=== PATIENT | female | born 1950 | race Caucasian/White ===

== ENCOUNTER 2019-05-23 12:35 | Inpatient (IN) ==
[2019-05-23 12:35] LABS: Basophils # 0.1 K/mm3 (0-0.2); Basophils % 0.3 % (0.1-2.0); Eosinophils # 0.1 K/mm3 (0.0-0.4); Eosinophils % 0.4 % (0.1-12.0); Hematocrit 41.2 % (37.0-47.0); Hemoglobin 12.8 g/dL (12.2-16.2); Lymphocytes # 3.9 K/mm3 (0.7-4.5); Lymphocytes % 16.9 % (10-50); Mean Corpuscular Volume 88.8 fl (81-99); Mean Platelet Volume 7.9 fl (7.4-10.4); Monocytes # 1.3 K/mm3 (0.1-1.0); Monocytes % 5.7 % (1.7-9.3); Neutrophils # 17.6 K/mm3 (1.8-7.8); Neutrophils % 76.6 % (37.0-80.0); Platelet Count 202 K/mm3 (142-424); Red Blood Count 4.63 M/mm3 (4.20-5.40); Red Cell Distribution Width 13.5 % (11.5-17.5); White Blood Count 22.9 K/mm3 (4.8-10.8)
[2019-05-23 12:43] LABS: Albumin Level 2.8 gm/dL (3.4-5.0); Albumin/Globulin Ratio 0.8 (1.1-1.8); Anion Gap 8.5 mEq/L (5-15); Bilirubin,Total 1.6 mg/dL (0.2-1.0); Calcium 9.2 mg/dL (8.5-10.1); Globulin 3.6 gm/dl (1.3-3.2); Total Protein,Serum 6.4 gm/dL (6.4-8.2)
--- NOTE | 2019-05-23 12:46 | Emergency Department Note ---
ED Disposition Clinical Impression: Abdominal pain, Colitis Disposition: Admitted as Observation Condition on Discharge: Fair Referrals: Provider,Referral, [Primary Care Provider] - Time of Disposition: 14:23 - Critical Care Critical Care Time: No Attestation: On , the high probability of a clinically significant, sudden or life threatening deterioration of the following system(s) required my full and direct attention, intervention and personal management. The time I documented below is in addition to time spent performing reported procedures but includes the following listed in this critical care notation. Medical Decision Making - Medical Records Medical records reviewed: Yes: I reviewed the patient's medical records. - Saravanan Inquiry Pt receiving controlled substance: No Saravanan was queried for this patient: No Vital Signs: 05/23/19 12:13 05/23/19 13:52 Temperature 98.0 F Temperature Source Oral Pulse Rate 95 H Pulse Rate [Right Brachial] 103 H Respiratory Rate 18 Blood Pressure [Right Arm] 140/59 L Blood Pressure Mean [Right Arm] 86 Blood Pressure Source [Right Arm] Automatic Cuff Blood Pressure Position [Right Arm] Sitting 02 Sat by Pulse Oximetry 93 L Oxygen Delivery Method Nasal Cannula Oxygen Flow Rate (LPM) 3 - Lab Data Lab results reviewed: Yes: I reviewed the patient's lab results. Lab Results 05/23/19 12:24: WBC 22.9 H*, RBC 4.63, Hgb 12.8, Hct 41.2, MCV 88.8, MCH 27.6, MCHC 31.0 L, RDW 13.5, Plt Count 202, MPV 7.9, Neut % (Auto) 76.6, Lymph % (Auto) 16.9, [place] % (Auto) 5.7, Eos % (Auto) 0.4, Baso % (Auto) 0.3, Neut # (Auto) 17.6 H, Lymph # (Auto) 3.9, [place] # (Auto) 1.3 H, Eos # (Auto) 0.1, Baso # (Auto) 0.1, Total Counted 100, Neutrophils % (Manual) 64, Band Neutrophils % 12. 0 H, Lymphocytes % (Manual) 7 L, Atypical Lymphs % 15.0, Monocytes % (Manual) 2, Platelet Estimate Normal, RBC Morphology Normal 05/23/19 12:24: Sodium 136, Potassium 3.5, Chloride 97 L, Carbon Dioxide 34 H, Anion Gap 8.5, BUN 23 H, Creatinine 0.80, Estimated Creat Clear 67, Estimated GFR 71, Est GFR ( Amer) 86, Glucose 101, Calcium 9.2, Total Bilirubin 1.6 H, AST 27, ALT 29, Alkaline Phosphatase 89, Total Protein 6.4, Albumin 2.8 L, Globulin 3.6 H, Albumin/Globulin Ratio 0.8 L, Amylase 26, Lipase 70 L 05/23/19 13:30: Lactate 1.0 Result diagrams: 05/23/19 12:24 05/23/19 12:24 Orders (Tests/Meds): ED MEDICATIONS Generic Name Dose Route Start Last Admin Trade Name Freq PRN Reason Stop Dose Admin Acetaminophen 650 mg 05/23/19 12:42 05/23/19 12:57 Acetaminophen 325mg Tab PO 06/22/19 12:41 650 mg Q4HP PRN Administration Fever > 100.4 Levofloxacin/Dextrose 750 mg in 150 mls @ 100 mls/hr 05/23/19 14:00 05/23/19 14:02 Levofloxacin 750mg/150ml Premix IV 06/06/19 13:59 100 mls/hr Q24H RICK Administration Protocol Discontinued Medications Generic Name Dose Route Start Last Admin Trade Name Freq PRN Reason Stop Dose Admin Albuterol/Ipratropium 3 ml 05/23/19 13:51 05/23/19 13:51 Duoneb 3ml Neb IH 05/23/19 13:52 3 ml ONCE ONE Administration Sodium Chloride 1,000 mls @ 999 mls/hr 05/23/19 12:45 05/23/19 12:57 Sod Chlor 0.9% 1000ml Bag IV 05/23/19 13:45 999 mls/hr .Q1H1M RICK Administration Ondansetron HCl 4 mg 05/23/19 12:56 05/23/19 12:57 Zofran 4mg/2ml Vial IV 05/23/19 12:57 4 mg ONCE ONE Administration ORDERS Category Date Time Status Urinalysis (cathed specimen) Stat Lab 05/23/19 12:19 Ordered Blood Culture Stat Micro 05/23/19 13:30 Received - Physician Consults Physician Consulted: chioma Time: 14:25 Reason -: Admission, Pt condition Comment/Response: admit, hydration, initiate antibiotics ...leukocytosis and stranding on CT though patient is steroid dependent General Adult HPI - General Chief complaint: Abdominal Pain Stated complaint: fever Time Seen by Provider: 05/23/19 12:43 Mode of Arrival: EMS Source of Information: Patient Limitations: No Limitations Description of Symptoms (Recalled from ER Triage Doc. by RN): fever, abd discomfort, n/v - History of Present Illness HPI narrative: vomiting and fever. Hospice for endstage copd. Lives with her son. Has marked lower abdominal pain on arrival, guarding in lower quads - Related Data Allergies Allergy/AdvReac Type Severity Reaction Status Date / Time benzocaine [From Cetacaine] Allergy Unknown Unknown Verified 05/23/19 14:16 allergy reaction blueberry Allergy Unknown Unknown Verified 05/23/19 14:16 allergy reaction butamben [From Cetacaine] Allergy Unknown Unknown Verified 05/23/19 14:16 allergy reaction Iodinated Contrast Media - Allergy Unknown Unknown Verified 05/23/19 14:16 Oral and allergy reaction Sulfa (Sulfonamide Allergy Unknown Unknown Verified 05/23/19 14:16 Antibiotics) allergy [SULFA (SULFONAMIDE reaction ANTIBIOTICS)] tetracaine [From Cetacaine] Allergy Unknown Unknown Verified 05/23/19 14:16 allergy reaction UNKNOWN PAIN MED Allergy Unknown Unknown Uncoded 05/23/19 14:16 allergy reaction [facility] History - Hepatitis A Screen Drug use history?: No High risk sexual behaviors?: No History of sexually transmitted infection?: No Currently employed?: No Childcare worker?: No Do you have indoor plumbing?: Yes Do you have electricity?: Yes Attestation statement:: This patient has been screened for Hepatitis A risk factors. I have reviewed the patient's past medical history: Yes ROS Obtained: Yes All systems reviewed & no additional complaints - Constitutional Constitutional: Reports chills, Reports fever(s), Reports lethargy, Reports weakness - Eyes Eyes: Reports system reviewed and no additional complaints, except as docu - ENT Ears, Nose, Mouth, and Throat: Reports system reviewed and no additional complaints, except as docu - Respiratory Respiratory: Yes system reviewed and no additional complaints, except as docu, No chest congestion, No cough, Yes dyspnea, No coughing up blood - Gastrointestinal Gastrointestingal: Reports: abdominal pain, vomiting. Denies: vomiting blood, bright red blood in stools - Genitourinary Female Genitourinary: Denies dysuria, Denies flank pain - Neurologic Neurologic: Reports system reviewed and no additional complaints, except as docu, Denies burning sensations, Denies focal weakness, Denies headache(s), Denies seizure-like activity, Denies syncope, Reports vertigo, Reports weakness - Hematologic/Lymphatic Henatologic/Lymphatic: Denies easy bleeding, Denies easy bruising Physical Exam - General General appearance: alert, in distress, other (respiratory) - Head Head exam: atraumatic - Eye Eye exam: Present: normal appearance, PERRL, EOMI - ENT ENT exam: Present: normal oropharynx, mucous membranes dry - Neck Neck exam: Absent: tenderness, meningismus - Respiratory Respiratory exam: Present: respiratory distress, other (rhonchi scattered). Absent: normal lung sounds bilaterally - Cardiovascular Cardiovascular exam: Present: regular rate - Abdominal Exam Abdominal exam: Present: soft, tenderness, guarding. Absent: organomegaly, mass, hernia Abdominal tenderness: Present: RLQ, LLQ, suprapubic - Extremities Exam Extremities exam: Present: normal inspection, full ROM, normal capillary refill. Absent: tenderness, joint swelling, calf tenderness - Neurological Exam Neurological exam: Present: alert, CN II-XII intact, other (globally weak, no focal weakness) - Psychiatric Psychiatric exam: Present: normal affect, normal mood, other (depressed). Absent: anxious - Skin Skin exam: Present: warm, dry, intact, normal color
[2019-05-23 12:48] LABS: Lymphocytes % 7 % (10-50); Monocytes % 2 % (2-9); Neutrophils % 64 % (42-76); RBC Morphology Normal; Total Cells Counted 100
[2019-05-23 15:17] LABS: ABG Base Excess 1.8 mmol/L (-2.4-2.3); ABG HCO3 25.9 mmhg (22.0-26.0); ABG Oxygen Saturation 98 % (90-100); ABG PCO2 38.9 mmhg (35.0-45.0); ABG PH 7.44 mmol/L (7.35-7.45); ABG TCO2 27.1 mmhg (23-27)
[2019-05-23 15:18] LABS: Allen's Test ACCEPTABLE; Oxygen 4 LPM %
--- NOTE | 2019-05-23 16:25 | History & Physical Report ---
*Admission Date: 05/23/19 *Chief complaint: colitis *History of present illness: 68 year old female presents to ER for abdominal pain, fever, and N/V. Diagnosed with colitis via CT scan and admitted for further observation. WBC are also elevated, patient is on chronic steroids. Onset of symptoms Thursday evening. Diminished appetite but drinking OK. Last BM yesterday, last urination yesterday. She reports living by herself in [facility] but receiving hospice care (Dr Johnson) the past 3-4 weeks for end-stage COPD. Previous provider was Dr Gilliam in [place]. Usually wears 3L NC at home, requiring 4L currently. She uses a walker at home, does not drive. Quit smoking about five years ago. Cough and breathing is per her usual. She reports feeling comfortable at this time. Overall poor historian and tells me she is very tired. No family to accompany at this time. [facility] History Medical History: Reports:: Chronic Obstructive Pulmonary Disease (COPD) *Have you ever received a pneumonia vaccine?: No *Have you received a flu vaccine this season?: No Other Surgeries: Yes: Other (hemorrhoidectomy) - *Social History Smoking Status: Former smoker Tobacco Type: cigarettes *Occupational Status:: disabled *Travel in the last 8 weeks: None Family Hx:: Unable to obtain Review of Systems - Constitutional Reports anorexia, Reports chills, Reports fever(s), Reports lack of energy, Reports malaise, Reports weakness - *Cardiovascular Denies chest pain, Denies irregular heart rhythm, Denies lightheadedness - *Respiratory Reports cough, Reports shortness of breath - *Gastrointestinal Reports abdominal pain, Reports nausea, Reports vomiting - *Musculoskeletal Reports decreased muscle mass, Reports muscle weakness - *Neurologic Reports dizziness, Reports weakness, Denies burning sensations, Denies localized weakness, Denies headache(s), Denies seizure-like activity, Denies fainting Meds Home Medications Medication Instructions Recorded Confirmed Type Ipratropium/Albuterol Sulfate 1 neb IH QID 05/23/19 05/23/19 History [Iprat-Albut 0.5-3(2.5) mg/3 ml] Metoprolol Tartrate [Lopressor 25 mg PO DAILY 05/23/19 05/23/19 History 25mg tablet] Mirtazapine 7.5 mg PO DAILY 05/23/19 05/23/19 History Morphine Sulfate [MSIR 15mg tablet] 15 mg PO TIDP PRN 05/23/19 05/23/19 History clonazePAM [Clonazepam] 1 mg PO TID 05/23/19 05/23/19 History Allergies Allergy/AdvReac Type Severity Reaction Status Date / Time benzocaine [From Cetacaine] Allergy Unknown Unknown Verified 05/23/19 14:16 allergy reaction blueberry Allergy Unknown Unknown Verified 05/23/19 14:16 allergy reaction butamben [From Cetacaine] Allergy Unknown Unknown Verified 05/23/19 14:16 allergy reaction Iodinated Contrast Media - Allergy Unknown Unknown Verified 05/23/19 14:16 Oral and allergy reaction Sulfa (Sulfonamide Allergy Unknown Unknown Verified 05/23/19 14:16 Antibiotics) allergy [SULFA (SULFONAMIDE reaction ANTIBIOTICS)] tetracaine [From Cetacaine] Allergy Unknown Unknown Verified 05/23/19 14:16 allergy reaction UNKNOWN PAIN MED Allergy Unknown Unknown Uncoded 05/23/19 14:16 allergy reaction Exam Vital signs and Labs for Last 24 Hours: Temp Pulse Resp BP Pulse Ox 98.0 F 87 18 121/72 93 L 05/23/19 15:32 05/23/19 15:32 05/23/19 15:32 05/23/19 15:32 05/23/19 12:13 Laboratory Results - last 24 hr 05/23/19 12:24: WBC 22.9 H*, RBC 4.63, Hgb 12.8, Hct 41.2, MCV 88.8, MCH 27.6, MCHC 31.0 L, RDW 13.5, Plt Count 202, MPV 7.9, Neut % (Auto) 76.6, Lymph % (Auto) 16.9, [place] % (Auto) 5.7, Eos % (Auto) 0.4, Baso % (Auto) 0.3, Neut # (Auto) 17.6 H, Lymph # (Auto) 3.9, [place] # (Auto) 1.3 H, Eos # (Auto) 0.1, Baso # (Auto) 0.1, Total Counted 100, Neutrophils % (Manual) 64, Band Neutrophils % 12.0 H, Lymphocytes % (Manual) 7 L, Atypical Lymphs % 15.0, Monocytes % (Manual) 2, Platelet Estimate Normal, RBC Morphology Normal 05/23/19 12:24: Sodium 136, Potassium 3.5, Chloride 97 L, Carbon Dioxide 34 H, Anion Gap 8.5, BUN 23 H, Creatinine 0.80, Estimated Creat Clear 67, Estimated GFR 71, Est GFR ( Amer) 86, Glucose 101, Calcium 9.2, Total Bilirubin 1.6 H, AST 27, ALT 29, Alkaline Phosphatase 89, Total Protein 6.4, Albumin 2.8 L, Globulin 3.6 H, Albumin/Globulin Ratio 0.8 L, Amylase 26, Lipase 70 L 05/23/19 13:30: Lactate 1.0 05/23/19 14:36: Specimen Source L. radial, O2 % 4 lpm, ABG pH 7.44, ABG pCO2 38.9, ABG pO2 98.0, ABG HCO3 25.9, ABG Total CO2 27.1 H, ABG O2 Saturation 98, ABG Base Excess 1.8, Demarco Test Acceptable I & O for Last 24 hours: Intake & Output 05/20/19 05/21/19 05/22/19 05/23/19 23:59 23:59 23:59 23:59 Intake Total 1100 / 1100 Balance 1100 / 1100 Weight 180 lb - Constitutional average body habitus, chronically ill appearing - *Routine HEENT Exam Head: Present: normocephalic, atraumatic ENT: Present: mucous membranes moist - *Routine Neck Exam Present: supple - *Routine Respiratory Exam Present: decreased breath sounds. Absent: accessory muscle use - *Routine Cardiovascular Exam Present: RRR, Normal S1, Normal S2. Absent: murmur - *Routine Abdominal Exam Present: soft, normoactive bowel sounds, tenderness. Absent: distended - *Routine Extremities Exam Absent: cyanosis, edema - *Routine Skin Exam Present: intact, dry, pallor - *Routine Neurological Exam Present: alert, oriented X3 - Routine Psychiatric Exam Present: normal affect Assessment and Plan (1) Abdominal pain Current visit: Yes Status: Acute Category: Medical Code(s): R10.9 - Unspecified abdominal pain (2) Colitis Current visit: Yes Status: Acute Category: Medical Code(s): K52.9 - Noninfective gastroenteritis and colitis, unspecified - Assessment and plan all Dx Assessment and Plan for all problems:: Patient will be admitted for observation and administration of IVF, antipyretics, and antibiotics. OK to do ice chips at this time.
[2019-05-24 06:03] LABS: Basophils % 0.1 % (0.1-2.0); Eosinophils % 0.2 % (0.1-12.0); Hematocrit 38.1 % (37.0-47.0); Lymphocytes # 1.3 K/mm3 (0.7-4.5); Lymphocytes % 7.9 % (10-50); Mean Corpuscular HGB Conc 31.4 g/dL (31.8-35.4); Mean Corpuscular Volume 92.9 fl (81-99); Mean Platelet Volume 8.1 fl (7.4-10.4); Monocytes # 0.7 K/mm3 (0.1-1.0); Monocytes % 4.4 % (1.7-9.3); Neutrophils # 14.4 K/mm3 (1.8-7.8); Neutrophils % 87.4 % (37.0-80.0); Platelet Count 189 K/mm3 (142-424); Red Cell Distribution Width 13.8 % (11.5-17.5); White Blood Count 16.5 K/mm3 (4.8-10.8)
[2019-05-24 06:07] LABS: Anion Gap 14.5 mEq/L (5-15); Calcium 8.3 mg/dL (8.5-10.1)
--- NOTE | 2019-05-24 07:05 | Progress Note ---
Internal Medicine - PN: Ratna *Date: 05/24/19 *Time: 07:03 Interval history: Patient did not sleep well overnight. She reports nausea this morning. She does however report that she has had improvement in her abdominal pain. She has had a bowel movement and has been able to urinate. Exam Vital signs and Labs for Last 24 Hours: Temp Pulse Resp BP Pulse Ox 99.2 F 115 H 18 170/60 H 90 L 05/24/19 04:00 05/24/19 05:59 05/24/19 04:00 05/24/19 04:00 05/24/19 05:59 Laboratory Results - last 24 hr 05/23/19 12:24: WBC 22.9 H*, RBC 4.63, Hgb 12.8, Hct 41.2, MCV 88.8, MCH 27.6, MCHC 31.0 L, RDW 13.5, Plt Count 202, MPV 7.9, Neut % (Auto) 76.6, Lymph % (Auto) 16.9, [place] % (Auto) 5.7, Eos % (Auto) 0.4, Baso % (Auto) 0.3, Neut # (Auto) 17.6 H, Lymph # (Auto) 3.9, [place] # (Auto) 1.3 H, Eos # (Auto) 0.1, Baso # (Auto) 0.1, Total Counted 100, Neutrophils % (Manual) 64, Band Neutrophils % 12.0 H, Lymphocytes % (Manual) 7 L, Atypical Lymphs % 15.0, Monocytes % (Manual) 2, Platelet Estimate Normal, RBC Morphology Normal 05/23/19 12:24: Sodium 136, Potassium 3.5, Chloride 97 L, Carbon Dioxide 34 H, Anion Gap 8.5, BUN 23 H, Creatinine 0.80, Estimated Creat Clear 67, Estimated GFR 71, Est GFR ( Amer) 86, Glucose 101, Calcium 9.2, Total Bilirubin 1.6 H, AST 27, ALT 29, Alkaline Phosphatase 89, Total Protein 6.4, Albumin 2.8 L, Globulin 3.6 H, Albumin/Globulin Ratio 0.8 L, Amylase 26, Lipase 70 L 05/23/19 13:30: Lactate 1.0 05/23/19 14:36: Specimen Source L. radial, O2 % 4 lpm, ABG pH 7.44, ABG pCO2 38.9, ABG pO2 98.0, ABG HCO3 25.9, ABG Total CO2 27.1 H, ABG O2 Saturation 98, ABG Base Excess 1.8, Demarco Test Acceptable 05/24/19 05:17: WBC 16.5 H D, RBC 4.10 L, Hgb 12.0 L, Hct 38.1, MCV 92.9, MCH 29.2, MCHC 31.4 L, RDW 13.8, Plt Count 189, MPV 8.1, Neut % (Auto) 87.4 H, Lymph % (Auto) 7.9 L, [place] % (Auto) 4.4, Eos % (Auto) 0.2, Baso % (Auto) 0.1, Neut # (Auto) 14.4 H, Lymph # (Auto) 1.3, [place] # (Auto) 0.7, Eos # (Auto) 0.0, Baso # (Auto) 0.0 05/24/19 05:17: Sodium 136, Potassium 3.5, Chloride 96 L, Carbon Dioxide 29, Anion Gap 14.5, BUN 17 D, Creatinine 0.83, Estimated Creat Clear 48, Estimated GFR 68, Est GFR ( Amer) 82, Glucose 110 H, Calcium 8.3 L I & O for Last 24 hours: Intake & Output 05/21/19 05/22/19 05/23/19 05/24/19 11:59 11:59 11:59 11:59 Intake Total 2251 / 2251 Balance 2251 / 2251 Weight 127 lb 5 oz Narrative: Patient has an increased respiratory rate with shallow breathing. She looks very tired. Lungs are distant with poor aeration. Heart has a regular rate and rhythm. Abdomen is soft with right upper and lower quadrant tenderness today. Bowel sounds are present. Assessment and Plan (1) Colitis Current visit: Yes Status: Acute Category: Medical Code(s): K52.9 - Noninfective gastroenteritis and colitis, unspecified (2) Abdominal pain Current visit: Yes Status: Acute Category: Medical Code(s): R10.9 - Unspecified abdominal pain - Assessment and plan all Dx Assessment and Plan for all problems:: Continue current antibiotics for patient's colitis along with IV fluids. Will advance diet to clear liquids. Anticipate patient needing at least another day in the hospital
--- NOTE | 2019-05-24 07:24 | Pharmacy Consult Notes ---
[facility] Pharmacy VTE Monitoring - Patient Demographics Admission date: 05/23/19 Report Date: 05/24/19 Time: 07:24 Allergies/Adverse Reactions: Patient Allergies benzocaine [From Cetacaine] Allergy (Unknown, Verified 05/23/19 14:16) Unknown allergy reaction blueberry Allergy (Unknown, Verified 05/23/19 14:16) Unknown allergy reaction butamben [From Cetacaine] Allergy (Unknown, Verified 05/23/19 14:16) Unknown allergy reaction Iodinated Contrast Media - Oral and Allergy (Unknown, Verified 05/23/19 14:16) Unknown allergy reaction Sulfa (Sulfonamide Antibiotics) [SULFA (SULFONAMIDE ANTIBIOTICS)] Allergy (Unknown, Verified 05/23/19 14:16) Unknown allergy reaction tetracaine [From Cetacaine] Allergy (Unknown, Verified 05/23/19 14:16) Unknown allergy reaction UNKNOWN PAIN MED Allergy (Unknown, Uncoded 05/23/19 14:16) Unknown allergy reaction Height: 1.7 m Weight: 57.748 kg Patient Problems: Current Active Problems (Updated 05/23/19 @ 14:30 by Chase Gordon MD) Abdominal pain (Acute) Colitis (Acute) - VTE Risk Labs: VTE Related Lab Results Hgb 12.0 g/dL (12.2-16.2) L 05/24/19 05:17 Hct 38.1 % (37.0-47.0) 05/24/19 05:17 Plt Count 189 K/mm3 (142-424) 05/24/19 05:17 BUN 17 mg/dL (7-18) D 05/24/19 05:17 Creatinine 0.83 mg/dL (0.55-1.02) 05/24/19 05:17 Estimated Creat Clear 48 mL/min (50-200) 05/24/19 05:17 VTE Score: 7 VTE Risk Level: Moderate Risk - Prophylaxis VTE Prophylaxis Ordered?: Yes Types of VTE Prophylaxis: TEDS Knee High Location of Applied Device: Bilateral Lower Extremeties - VTE Diagnosis Confirmed Treatment or plan recommended: Continue Current Treatment
[2019-05-24 08:15] LABS: Lymphocytes % 5 % (10-50); Monocytes % 3 % (2-9); Neutrophils % 89 % (42-76); RBC Morphology Normal; Total Cells Counted 100
[2019-05-25 06:27] LABS: Basophils % 0.1 % (0.1-2.0); Eosinophils # 0.1 K/mm3 (0.0-0.4); Eosinophils % 0.4 % (0.1-12.0); Hematocrit 37.8 % (37.0-47.0); Hemoglobin 11.8 g/dL (12.2-16.2); Lymphocytes # 1.5 K/mm3 (0.7-4.5); Lymphocytes % 10.9 % (10-50); Mean Corpuscular HGB Conc 31.2 g/dL (31.8-35.4); Mean Corpuscular Volume 94.5 fl (81-99); Mean Platelet Volume 8.8 fl (7.4-10.4); Monocytes # 0.7 K/mm3 (0.1-1.0); Neutrophils # 11.7 K/mm3 (1.8-7.8); Neutrophils % 83.7 % (37.0-80.0); Platelet Count 217 K/mm3 (142-424); Red Cell Distribution Width 13.9 % (11.5-17.5)
--- NOTE | 2019-05-25 06:54 | Progress Note ---
Internal Medicine - PN: Subj *Date: 05/25/19 *Time: 06:52 Interval history: Patient reports improvement in her abdominal pain. However she feels like her breathing is a little more labored above baseline. She vomited multiple times yesterday after trying liquids. Her most significant point this morning is nausea Exam Vital signs and Labs for Last 24 Hours: Temp Pulse Resp BP Pulse Ox 99.1 F 88 26 H 148/64 H 90 L 05/25/19 04:00 05/25/19 06:00 05/25/19 04:00 05/25/19 04:00 05/25/19 06:00 Laboratory Results - last 24 hr 05/24/19 05:17: Total Counted 100, Neutrophils % (Manual) 89 H, Band Neutrophils % 3.0, Lymphocytes % (Manual) 5 L, Monocytes % (Manual) 3, Platelet Estimate Normal, RBC Morphology Normal 05/24/19 19:30: Stl Aeromonas (PCR) Not detected, Stl C. cayetanensis PCR Not detected, Stool Rotavirus (PCR) Not detected, Stl Adenov F 40/41 PCR Not detected, Stool Astrovirus (PCR) Not detected, Stool Campylobacter PCR Not detected, Stl C.difficile Tox PCR Not detected, Stool Cryptosporidium PCR Not detected, Stl E.coli Shiga Tox PCR Not detected, Stool E coli O157 PCR Not detected, Stl Enterotoxigenic E PCR Not detected, Stool EPEC (PCR) Not detected, Stool EAEC (PCR) Not detected, Stl E. histolytica PCR Not detected, Stool Giardia Lamblia PCR Not detected, Stool Salmonella PCR Not detected, Stool Sapov irus (PCR) Not detected, Stl P. shigelloides PCR Not detected, Stl Shigella/EIEC PCR Not detected, St Y.enterocolitica PCR Not detected, Stool Vibrio (PCR) Not detected, Stl Vibrio cholerae PCR Not detected, Stl Norovirus GI/GII PCR Not detected 05/25/19 05:28: WBC 14.0 H, RBC 4.00 L, Hgb 11.8 L, Hct 37.8, MCV 94.5, MCH 29. 5, MCHC 31.2 L, RDW 13.9, Plt Count 217, MPV 8.8, Neut % (Auto) 83.7 H, Lymph % (Auto) 10.9, [place] % (Auto) 5.0, Eos % (Auto) 0.4, Baso % (Auto) 0.1, Neut # (Auto) 11.7 H, Lymph # (Auto) 1.5, [place] # (Auto) 0.7, Eos # (Auto) 0.1, Baso # (Auto) 0.0 I & O for Last 24 hours: Intake & Output 05/22/19 05/23/19 05/24/19 05/25/19 11:59 11:59 11:59 11:59 Intake Total 2591 / 2591 1963 / 1963 Output Total 525 / 525 Balance 2591 / 2591 1439 / 1439 Weight 127 lb 5 oz 126 lb 6 oz Microbiology Reports for the Last 24 Hours: Microbiology 05/23/19 13:30 Blood Blood Culture - Preliminary Narrative: She is awake and alert. She looks weak. Oropharynx is moist. Lungs have poor air movement and are diminished. There are rhonchi from central airway secretions. Heart has a regular rate and rhythm. Abdomen is soft with right mid abdominal and lower quadrant tenderness. Assessment and Plan (1) Colitis Current visit: Yes Status: Acute Category: Medical Code(s): K52.9 - Noninfective gastroenteritis and colitis, unspecified (2) Abdominal pain Current visit: Yes Status: Acute Category: Medical Code(s): R10.9 - Unspecified abdominal pain (3) End stage COPD Current visit: Yes Status: Acute Category: Medical Code(s): J44.9 - Chronic obstructive pulmonary disease, unspecified - Assessment and plan all Dx Assessment and Plan for all problems:: 1. Continue IV antibiotics. I will discontinue metronidazole to see if that helps improve nausea. Add IV Protonix also to see if that improves nausea 2. On admission it was stated patient was on steroids chronically but that is not part of her home medication list. I will begin the patient some IV hydrocortisone over the next 24 hours.
--- NOTE | 2019-05-26 07:13 | Progress Note ---
Internal Medicine - PN: Subj *Date: 05/26/19 *Time: 07:11 Interval history: Patient reports improvement in abdominal pain and feeling well. Nursing staff reports patient went to the night without complaints of nausea or pain. Patient denies hunger. Exam Vital signs and Labs for Last 24 Hours: Temp Pulse Resp BP Pulse Ox 98.9 F 84 22 122/41 L 94 L 05/26/19 04:00 05/26/19 06:35 05/26/19 04:00 05/26/19 04:00 05/26/19 06:35 I & O for Last 24 hours: Intake & Output 05/23/19 05/24/19 05/25/19 05/26/19 11:59 11:59 11:59 11:59 Intake Total 2591 / 2591 2114 / 2114 2777 / 2777 Output Total 525 / 525 1070 / 1070 Balance 2591 / 2591 1589 / 1589 1707 / 1707 Weight 127 lb 5 oz 126 lb 6 oz 127 lb 1 oz Microbiology Reports for the Last 24 Hours: Microbiology 05/23/19 13:30 Blood Blood Culture - Preliminary Staph hominis ssp hominis 05/23/19 13:30 Blood Blood Culture - Preliminary NO GROWTH AFTER 48 HOURS Narrative: Patient physically looks better and is more awake and alert. Lungs are distant with poor aeration. Heart has a regular rate and rhythm. Abdomen is soft and nontender this morning. Assessment and Plan (1) Colitis Current visit: Yes Status: Acute Category: Medical Code(s): K52.9 - Noninfective gastroenteritis and colitis, unspecified (2) Abdominal pain Current visit: Yes Status: Acute Category: Medical Code(s): R10.9 - Unspecified abdominal pain (3) End stage COPD Current visit: Yes Status: Acute Category: Medical Code(s): J44.9 - Chronic obstructive pulmonary disease, unspecified - Assessment and plan all Dx Assessment and Plan for all problems:: Patient is finally showing signs of significant improvement. Advance diet today. Increase activity. Had a discussion with patient about discharge options and patient is comfortable going home despite her hospitalization and obvious weakness. Care management also talked with the patient and she was against the idea of short-term rehab
[2019-05-26 07:50] LABS: Basophils % 0.1 % (0.1-2.0); Eosinophils % 0.1 % (0.1-12.0); Hematocrit 34.9 % (37.0-47.0); Hemoglobin 10.6 g/dL (12.2-16.2); Lymphocytes # 0.5 K/mm3 (0.7-4.5); Lymphocytes % 5.3 % (10-50); Mean Corpuscular HGB Conc 30.2 g/dL (31.8-35.4); Mean Platelet Volume 8.1 fl (7.4-10.4); Monocytes # 0.3 K/mm3 (0.1-1.0); Monocytes % 3.1 % (1.7-9.3); Neutrophils # 8.4 K/mm3 (1.8-7.8); Neutrophils % 91.3 % (37.0-80.0); Platelet Count 191 K/mm3 (142-424); Red Blood Count 3.72 M/mm3 (4.20-5.40); Red Cell Distribution Width 13.5 % (11.5-17.5); White Blood Count 9.2 K/mm3 (4.8-10.8)
[2019-05-26 10:51] LABS: Lymphocytes % 4 % (10-50); Monocytes % 2 % (2-9); Neutrophils % 93 % (42-76); RBC Morphology Normal; Total Cells Counted 100
[2019-05-27 06:17] LABS: Basophils % 0.1 % (0.1-2.0); Eosinophils % 0.2 % (0.1-12.0); Hemoglobin 10.2 g/dL (12.2-16.2); Lymphocytes % 12.2 % (10-50); Mean Corpuscular Volume 93.4 fl (81-99); Mean Platelet Volume 8.2 fl (7.4-10.4); Monocytes # 0.5 K/mm3 (0.1-1.0); Monocytes % 5.5 % (1.7-9.3); Neutrophils # 6.9 K/mm3 (1.8-7.8); Neutrophils % 81.9 % (37.0-80.0); Platelet Count 195 K/mm3 (142-424); Red Blood Count 3.53 M/mm3 (4.20-5.40); Red Cell Distribution Width 13.8 % (11.5-17.5); White Blood Count 8.4 K/mm3 (4.8-10.8)
--- NOTE | 2019-05-27 07:10 | Progress Note ---
Internal Medicine - PN: Subj *Date: 05/27/19 *Time: 07:07 Interval history: Last night patient developed some chest pressure and heaviness in the central chest. Per protocol a troponin was checked an EKG was ordered. EKG was nonspecific but troponin was elevated at 1.4. I was the on-call physician and ordered Plavix 300 mg, Lovenox 1 mg/kg subcu and aspirin 325 mg daily. Patient has echocardiogram arrange this morning which is in process. She reports resolution of pain. She denies any shortness of breath above baseline. She admits to nausea that is now been present for several weeks. Apparently there has been much debate amongst medical providers who have participated in her care over the years about whether or not the patient has actually had previous MIs. Due to a dye allergy patient has never had cardiac catheterizations. Exam Vital signs and Labs for Last 24 Hours: Temp Pulse Resp BP Pulse Ox 97.7 F 66 20 133/53 L 97 05/27/19 04:00 05/27/19 06:32 05/27/19 04:00 05/27/19 04:00 05/27/19 06:32 Laboratory Results - last 24 hr 05/26/19 07:30: WBC 9.2 D, RBC 3.72 L, Hgb 10.6 L, Hct 34.9 L, MCV 94.0, MCH 28.4, MCHC 30.2 L, RDW 13.5, Plt Count 191, MPV 8.1, Neut % (Auto) 91.3 H, Lymph % (Auto) 5.3 L, [place] % (Auto) 3.1, Eos % (Auto) 0.1, Baso % (Auto) 0.1, Neut # (Auto) 8.4 H, Lymph # (Auto) 0.5 L, [place] # (Auto) 0.3, Eos # (Auto) 0.0, Baso # (Auto) 0.0, Total Counted 100, Neutrophils % (Manual) 93 H, Band Neutrophils % 1.0, Lymphocytes % (Manual) 4 L, Monocytes % (Manual) 2, Platelet Estimate Normal, RBC Morphology Normal 05/26/19 20:14: Troponin I 1.40 H 05/27/19 05:45: WBC 8.4, RBC 3.53 L, Hgb 10.2 L, Hct 33.0 L, MCV 93.4, MCH 29.0, MCHC 31.0 L, RDW 13.8, Plt Count 195, MPV 8.2, Neut % (Auto) 81.9 H, Lymph % (Auto) 12.2, [place] % (Auto) 5.5, Eos % (Auto) 0.2, Baso % (Auto) 0.1, Neut # (Auto) 6.9, Lymph # (Auto) 1.0, [place] # (Auto) 0.5, Eos # (Auto) 0.0, Baso # (Auto) 0.0 05/27/19 05:45: Troponin I 1.99 H I & O for Last 24 hours: Intake & Output 05/24/19 05/25/19 05/26/19 05/27/19 11:59 11:59 11:59 11:59 Intake Total 2591 / 2591 2114 / 2114 2927 / 2927 1468 / 1468 Output Total 525 / 525 2270 / 2270 1050 / 1050 Balance 2591 / 2591 1589 / 1589 657 / 657 418 / 418 Weight 127 lb 5 oz 126 lb 6 oz 127 lb 1 oz 128 lb 1 oz Microbiology Reports for the Last 24 Hours: Microbiology 05/23/19 13:30 Blood Blood Culture - Preliminary Staph hominis ssp hominis Narrative: Patient is awake and alert this morning. She continues to look better compared to earlier in admission. Heart has a regular rate and rhythm. Lungs are distant but clear. Abdomen is soft and nontender with active bowel sounds. Assessment and Plan (1) Colitis Current visit: Yes Status: Acute Category: Medical Code(s): K52.9 - Noninfective gastroenteritis and colitis, unspecified (2) Abdominal pain Current visit: Yes Status: Acute Category: Medical Code(s): R10.9 - Unspecified abdominal pain (3) End stage COPD Current visit: Yes Status: Acute Category: Medical Code(s): J44.9 - Chronic obstructive pulmonary disease, unspecified (4) Non-ST elevation [place] (NSTEMI) Current visit: Yes Status: Acute Category: Medical Code(s): I21.4 - Non-ST elevation (NSTEMI) myocardial infarction - Assessment and plan all Dx Assessment and Plan for all problems:: 1. Advance diet to low residue diet as patient is tolerated liquids 2. Echocardiogram today along with regular dosing of aspirin, Plavix, lisinopril and we may change her metoprolol depending on results of echocardiogram 3. Possible discharge tomorrow
--- NOTE | 2019-05-27 09:25 | Cardiology Report ---
PROCEDURE: 2-D M-mode and color Doppler study INDICATIONS FOR THE TEST: Chest pain X COPDX Heart Murmur Tobacco SmokingEX Palpitations Fatigue Syncope Edema Hypertension Diabetes Mellitus Rheumatic Fever SOBXDOE Obesity Hyperlipidemia Family History HD Additional History END STAGE COPD,ELEVATED TROPONINS PATIENT INFORMATION HEIGHT: 65 WEIGHT:127 GENDER: Female B/P:133/53 2-D/M-MODE INTERPRETATION: 2-D MEASUREMENTS OBSERVED VALUES IN CMS Right Ventricular Dimension (RVDd) 2.3 Interventricular Septum (Thickness)(IVsd) 1.3 Left Ventricular Internal Dimensions(LVIDd) 4.2 Left Ventricular Posterior Wall (Thickness)(LVPWd) 1.2 Aortic Root 2.9 Aortic Cusp Separation 1.3 Left Atrial Dimensions (LAD) 3.0 2D 1. Left atrium is mildly enlarged, left ventricle is normal size, mild concentric left ventricular hypertrophy, visually estimated ejection fraction 55% with no regional wall motion abnormality. 2. The right atrium and right ventricle are mildly enlarged with normal contractility. 3. The aortic valve is minimally thickened and fibrosed. 4. The mitral and tricuspid valve leaflets are minimally thickened. 5. The pulmonic valve is poorly visualized 6. No significant pericardial effusion noted. DOPPLER INTERROGATION: Doppler interrogation of the aortic, mitral and tricuspid valvular presence of mild mitral and tricuspid regurgitation, tricuspid regurgitation jet velocity is inadequate for calculation of the right ventricular systolic pressure, diastolic parameters are inconclusive. Inferior to is not well visualized. CONCLUSION: 1. Mildly enlarged left atrium, normal left ventricular size mild concentric left ventricular hypertrophy, visually estimated ejection fraction 55% with no regional wall motion abnormality, diastolic parameters are inconclusive. 2. Mild mitral and tricuspid regurgitation 3. No significant pericardial effusion noted.
--- NOTE | 2019-05-28 07:56 | Progress Note ---
Internal Medicine - PN: Subj *Date: 05/28/19 *Time: 07:54 Interval history: Patient reports some nausea this morning. She did mention yesterday her nausea has now been ongoing for at least 3 weeks. However she ate quite well yesterday with eating 75% of breakfast and supper. She normally eats 1 meal per day. Exam Vital signs and Labs for Last 24 Hours: Temp Pulse Resp BP Pulse Ox 98.0 F 68 16 147/50 H 96 05/28/19 04:00 05/28/19 06:39 05/28/19 04:00 05/28/19 04:00 05/28/19 06:39 I & O for Last 24 hours: Intake & Output 05/25/19 05/26/19 05/27/19 05/28/19 11:59 11:59 11:59 11:59 Intake Total 2114 / 2114 2927 / 2927 1828 / 1828 600 / 600 Output Total 525 / 525 2270 / 2270 1050 / 1050 1550 / 1550 Balance 1589 / 1589 657 / 657 778 / 778 -950 / -950 Weight 126 lb 6 oz 127 lb 1 oz 128 lb 1 oz 128 lb 0.994 oz Narrative: She is awake and sitting up in bed. She is in no distress. Lungs are distant but clear. Heart has a regular rate and rhythm. Abdomen is soft and nontender with active bowel sounds Assessment and Plan (1) Colitis Current visit: Yes Status: Acute Category: Medical Code(s): K52.9 - Noninfective gastroenteritis and colitis, unspecified (2) Abdominal pain Current visit: Yes Status: Acute Category: Medical Code(s): R10.9 - Unspecified abdominal pain (3) End stage COPD Current visit: Yes Status: Acute Category: Medical Code(s): J44.9 - Chronic obstructive pulmonary disease, unspecified (4) Non-ST elevation [place] (NSTEMI) Current visit: Yes Status: Acute Category: Medical Code(s): I21.4 - Non-ST elevation (NSTEMI) myocardial infarction - Assessment and plan all Dx Assessment and Plan for all problems:: Patient to be discharged today. She has repeatedly been asked over the last several days if she felt strong enough to go home as she lives alone. Patient is adamant that she will be able to manage with use of her rolling walker and lift chair as well as the assistance provided by hospice. Patient will be discharged home today. Patient was reminded that several new medications have been started due to her non-ST elevation TN that occurred while hospitalized.
--- NOTE | 2019-05-28 07:56 | Discharge Summary ---
General - General Admission date:: 05/23/19 Discharge date: 05/28/19 HPI HPI: 68 year old female presents to ER for abdominal pain, fever, and N/V. Diagnosed with colitis via CT scan and admitted for further observation. WBC are also elevated, patient is on chronic steroids. Onset of symptoms Thursday evening. Diminished appetite but drinking OK. Last BM yesterday, last urination yesterday. She reports living [facility] herself [facility] but receiving hospice care (Dr Johnson) the past 3-4 weeks for end-stage COPD. Previous provider was Dr Gilliam in [place]. Usually wears 3L NC at home, requiring 4L currently. She uses a walker at home, does not drive. Quit smoking about five years ago. Cough and breathing is per her usual. She reports feeling comfortable at this time. Overall poor historian and tells me she is very tired. No family to accompany at this time. Hospital Course Hospital Course: Is admitted and placed on Levaquin and Flagyl for her colitis. CT scan showed early changes consistent with colitis in the ascending colon. Over the patient's hospitalization her abdominal pain went from diffuse to localized to the right side of the abdomen before resolving. Mid hospitalization because of patient's complaint of persistent nausea the Flagyl was discontinued and Levaquin was used only. This did not really jayne the patient's nausea and as hospitalization progressed patient admitted that nausea had been present for several weeks even prior to admission. Once her abdominal pain had improved her diet was advanced to first clear liquids, then full liquids and then a low resid ue diet. Patient tolerated a low residue diet without vomiting or increase in abdominal pain. As hospitalization progressed because of the patient's current status being under the care of hospice for her end-stage COPD discussion was had with the patient about her ability return home. Patient declined any short-term rehabilitation stay. She was adamant that she would be able to manage with use of her rolling walker at home. Patient was quite weak with ambulation but continued to insist that she can manage at home and felt strong enough. On May 28 patient had reached maximum medical improvement and was discharged home. Patient will be given some oral Zofran as an antiemetic at discharge. On the evening of May 26 patient developed chest tightness which she reported to the nurse and per protocol EKG was performed as well as a troponin. EKG had nonspecific changes but patient's troponin was positive (1.4). Patient was loaded with Plavix and started on aspirin and Lovenox. The following morning an echocardiogram was performed which showed normal left ventricular systolic function. Patient claimed a history of allergy to contrast dye which is why she never had any previous cardiac work-up as apparently previous primary care doctors I told her she had had an OH in the past. Patient was managed medically because of this and due to ongoing care for her end-stage COPD. At discharge patient will continue on aspirin 81 mg a day, Plavix 75 mg daily, atorvastatin 40 mg daily and she will continue her beta-jamal and low-dose of an DEIDRA inhibitor. Objective Vital signs: Temp Pulse Resp BP Pulse Ox 98.0 F 68 16 147/50 H 96 05/28/19 04:00 05/28/19 06:39 05/28/19 04:00 05/28/19 04:00 05/28/19 06:39 Results Labs on day of discharge: Preliminary micro results at discharge 05/23/19 13:30 Blood Culture - Preliminary Blood Staph hominis ssp hominis 05/23/19 13:30 Blood Culture - Preliminary Blood NO GROWTH AFTER 48 HOURS DS: Diagnosis - Discharge Diagnosis (1) Colitis Status: Acute (2) Non-ST elevation [place] (NSTEMI) Status: Acute (3) End stage COPD Status: Chronic Discharge Plan - Patient Discharge Instructions ACTIVITY: Continue current activity DIET: continue same diet Patient Instructions: Acute Abdominal Pain, DI for Chronic Obstructive Pulmonary Disease, DI for Abdominal Pain-Adult, DI for Colitis - Follow up Plan Disposition: Hospice - Home Home Medications: Home Medications Medication Instructions Recorded Confirmed Type Ipratropium/Albuterol Sulfate 3 ml IH QID 05/23/19 05/24/19 History [Iprat-Albut 0.5-3(2.5) mg/3 ml] Metoprolol Tartrate [Lopressor 25 mg PO HS 05/23/19 05/25/19 History 25mg tablet] Mirtazapine 7.5 mg PO DAILY 05/23/19 05/23/19 History Morphine Sulfate [MSIR 15mg tablet] 15 mg PO TIDP PRN 05/23/19 05/23/19 History clonazePAM [Clonazepam] 1 mg PO TID 05/23/19 05/23/19 History Digoxin 0.125 mg PO DAILY 05/25/19 05/25/19 History predniSONE [Deltasone 20mg 20 mg PO DAILY 05/25/19 05/25/19 History tablet] Aspirin [Aspirin 81mg EC Tab] 81 mg PO DAILY #30 tablet. 05/28/19 Rx Atorvastatin Calcium [Lipitor 40mg 40 mg PO HS #30 tab 05/28/19 Rx Tablet] Clopidogrel Bisulfate [Plavix 75mg 75 mg PO DAILY #30 tab 05/28/19 Rx Tab] Lisinopril [Zestril 5mg 5 mg PO DAILY #30 tab 05/28/19 Rx Tablet] Ondansetron HCl [Ondansetron 8mg 8 mg PO Q8HP PRN #30 tab 05/28/19 Rx Tablet] Prescriptions/Medication Reconciliation: New Atorvastatin Calcium [Lipitor 40mg Tablet] 40 mg PO HS #30 tab Ondansetron HCl [Ondansetron 8mg Tablet] 8 mg PO Q8HP PRN #30 tab PRN Reason: Nausea Clopidogrel Bisulfate [Plavix 75mg Tab] 75 mg PO DAILY #30 tab Lisinopril [Zestril 5mg Tablet] 5 mg PO DAILY #30 tab Aspirin [Aspirin 81mg EC Tab] 81 mg PO DAILY #30 tablet. Continued Mirtazapine 7.5 mg PO DAILY Ipratropium/Albuterol Sulfate [Iprat-Albut 0.5-3(2.5) mg/3 ml] 3 ml IH QID clonazePAM [Clonazepam] 1 mg PO TID predniSONE [Deltasone 20mg tablet] 20 mg PO DAILY Digoxin 0.125 mg PO DAILY Morphine Sulfate [MSIR 15mg tablet] 15 mg PO TIDP PRN PRN Reason: PAIN Metoprolol Tartrate [Lopressor 25mg tablet] 25 mg PO HS
[2019-05-28 08:18] VITALS: BP 166/59
== END 2019-05-28 10:40 | disposition hospice, home (50) | DRG 391 ==
LOC: ER 12:35 → 2ND 14:53
PROVIDERS: ADMIT Family Medicine; ATTEND Family Medicine
CPT/HCPCS: 36415; 71010; 71045; 74176; 80048; 80053; 82150; 82803; 83605; 83690; 84484; 85007; 85025; 87040; 87077; 87186; 87507; 93005; 93306; 94640; 94761; 96365; 96367; 96375; 99284; J1956; J2405